=== PATIENT | male | born 1980 | race Caucasian/White ===

== ENCOUNTER 2024-08-25 06:00 | Emergency (ER) | payer OTHER, SELFPAY ==
[2024-08-25 06:00] VITALS: BP 104/89
[2024-08-25 06:32] LABS: Hematocrit 40.7 % (39.0-52.0); Hemoglobin 13.9 g/dL (13.0-18.0); Mean Corp Hgb Conc. 34.2 g/dL (33.0-37.0); Mean Corpuscular Volume 91.9 fL (80.0-94.0); Nucleated Red Blood Cells % 0 % (-); Platelet Count 147 10^3/uL (130-400); Red Cell Dist. Width 12.8 % (11.5-14.5)
[2024-08-25 06:38] LABS: COVID-19 Antigen Negative (Negative)
[2024-08-25 06:55] LABS: ALT (SGPT) 29 U/L (0-50); AST (SGOT) 27 U/L (17-59); Albumin 4.6 g/dl (3.5-5.0); Alkaline Phosphatase 45 U/L (38-126); Blood Urea Nitrogen 18 mg/dl (9-20); Calcium 9.2 mg/dl (8.4-10.2); Carbon Dioxide 22 mmol/L (22-30); Chloride 113 mmol/L (98-107); Glucose 132 mg/dl (70-99); Potassium 4.3 mmol/L (3.5-5.1); Sodium 141 mmol/L (135-145); Total Protein 7.3 g/dl (6.3-8.2); eGFR > 60.00
--- NOTE | 2024-08-25 07:40 | ED.GENMED ---
History of Present Illness
General
Chief Complaint: Fever
Source: patient
Exam Limitations: none
Time Seen by Provider: 08/25/24 07:31
History of Present Illness
History of Present Illness:
44-year-old otherwise healthy male presents with 2 to 3 days worth of fever and cough and onset of back pain. The pain is bilateral in the lower back. He denies any production. No vomiting. No known sick contacts. He is healthy otherwise. No
urinary symptoms. No other complaint
Phy Exam
Physical Exam
Physical Exam:
General: Well-appearing male no acute respiratory distress
HEENT: Normocephalic atraumatic posterior pharynx without erythema no trismus or drooling neck is supple
Heart: Tachycardic but regular
Lungs: Clear no wheeze
Extremities: No cyanosis
Musculoskeletal exam: No tenderness about the lumbar spine or costovertebral angles
Course
Orders/Labs/Results
Orders:
Orders
08/25/24 06:13
Electrocardiogram (*1) Urgent
Reason for Study: Other
Other Reason for Exam: Possible Sepsis
EKG- Treatment ONCE
CR Chest - 2 Views Urgent
Comment:
Reason For Exam: suspected infection
08/25/24 06:17
COVID-19 Antigen Urgent
Source: Nasal Swab
Complete Blood Count/With Diff Urgent
Comprehensive Metabolic Panel Urgent
Lactic Acid Q4H
Comment: ON ICE, CANCEL 2ND ORDER IF FIRST LACTIC ACID LEVEL <2
Influenza A+B Rapid Molecular Urgent
ZOEY Source: Nasal Swab
Specimen Description:
08/25/24 07:40
0.9% Sodium Chloride 1000 ml [Nss] 1,000 ml IV BOLUS
Acetaminophen [Tylenol] 650 mg PO NOW STA
Ketorolac [Toradol] 15 mg IV NOW STA
08/25/24 10:15
Lactic Acid Q4H
Comment: ON ICE, CANCEL 2ND ORDER IF FIRST LACTIC ACID LEVEL <2
Abnormal Lab Results
08/25/24
06:17
RBC 4.43 L 10^6/uL
(4.70-6.10)
MCH 31.4 H pg
(27.0-31.0)
MPV 11.6 H fL
(7.4-10.4)
Absolute Monos (auto) 1.1 H 10^3/uL
(0.1-0.6)
Lymphocytes % 18.4 L %
(20.5-51.1)
Monocytes % 12.6 H %
(1.7-9.3)
Chloride 113 H mmol/L
(98-107)
Glucose 132 H mg/dl
(70-99)
Lactic Acid 2.5 H mmol/L
(0.7-2.0)
08/25/24 06:17
08/25/24 06:17
Vital Signs
Initial and Last Documented VS:
Initial Vital Signs
Temp Pulse Resp BP Pulse Ox
100.6 F H 118 20 104/89 97
08/25/24 06:00 08/25/24 06:00 08/25/24 06:00 08/25/24 06:00 08/25/24 06:00
Last Documented Vital Signs
Temp Pulse Resp BP Pulse Ox
98.9 F 87 19 104/89 98
08/25/24 09:07 08/25/24 09:00 08/25/24 09:00 08/25/24 06:00 08/25/24 09:00
MDM/Problems Addressed
Differential Diagnosis Includes:
Fever with cough and lower back pain. Consider viral illness versus pneumonia, myalgias.
*Pulse Oximetry
SaO2: 97
Oxygen Mode of Delivery: Room air
Patient hypoxic: no
*Critical Care Note
Total Time (30-74mins, 75-104mins- exclusive of procedures): Not Applicable
Update Note
Update Note:
Temperature improved patient hydrated suspect underlying viral illness. Chest x-ray reviewed without obvious pneumonia. Will recommend supportive care at home
ED Attending Note
-
Portions of this chart may have been created with voice recognition software.� Occasional wrong word or��sound alike� substitutions may have occurred due to the inherent limitations of voice recognition software.
Discharge Plan
Departure
Patient Disposition: Home (Routine Discharge)
Date of Disposition: 08/25/24
Time of Disposition: 09:09
Patient with high blood pressure during this ER visit?: No
Discharge Problem:
Viral illness
Instructions: Viral Syndrome (DC)
Referrals:
UNKNOWN - PT DOES,NOT KNOW [Family Provider]
Activity Restrictions/Additional Instructions:
Rest. Drink plenty of fluids. Use ibuprofen or Tylenol for fever. Return if worse otherwise follow-up your doctor
Interventions
Interventions:
*Risk Screen - Suicide Last Done: 08/25/24 06:10
*General Assessment Last Done: 08/25/24 06:10
*Neglect/Abuse Screening Last Done: 08/25/24 06:10
Discharge Date and Time
Print Language: YORUBA
[2024-08-25] MEDS: TYLENOL 650 MG PO (07:57)
[2024-08-25] MEDS: NSS 1000 IV (07:57)
[2024-08-25] MEDS: TORADOL 15 MG IV (07:57)
[2024-08-25 09:06] VITALS: BP 119/82
== END 2024-08-25 09:45 | disposition home or self-care (01) ==
LOC: EMR 06:00
PROVIDERS: EMERGENCY PHYSICIAN Emergency Medicine
DX: B34.9 Viral infection, unspecified (principal)
CPT/HCPCS: 99283; 96374; 96361; 71046; 80053; 83605; 85025; 87502; 87811; 93005